=== PATIENT | male | born 1945 | race Caucasian/White ===

== ENCOUNTER 2020-01-24 06:05 | Day surgery (SDC) | payer OTHER ==
[~2020-01-24] VITALS: Ht 162.6 cm; Wt 89.8 kg
--- NOTE | ~2020-01-24 | O ---
Formerly [facility] [place] [address] OPERATIVE REPORT Name: RAYMOND WEST Room #: 150-8 [facility].#: [id number] Admission: 01/24/20 Attend Phys: Vinicio Chiu MD Discharge: Date of : 45 Report #: [id number] THIS REPORT FOR: cc: MILKA CARREON - Family physician unknown Vinicio Chiu MD ~ CC: DAFNE Calderon unknown MD Vinicio Duarte DATE OF SERVICE: 01/24/2020 SURGEON: Vinicio Chiu MD QUALITY ASSURANCE ASSESSOR: None. PREOPERATIVE DIAGNOSIS: Bilateral upper lid dermatochalasia with superior visual field defect. POSTOPERATIVE DIAGNOSIS: Bilateral upper lid dermatochalasia with superior visual field defect. OPERATION PERFORMED: Bilateral upper lid functional blepharoplasty. ANESTHESIA: Local with IV sedation. COMPLICATIONS: None. INDICATIONS FOR SURGERY: This patient has acquired upper lid dermatochalasia with superior visual field loss both eyes because of excessive upper lid tissues to include skin and fat. Visual field testing demonstrates dense superior visual defects. Retesting with the upper lid elevated shows an improvement in visual field loss of over 30% and in excess of 12 degrees. The current procedures are undertaken in order to improve the patient's visual function. Informed consent was obtained to include but not limited to the loss of vision, bleeding, infection, scarring, failure to improve the problem and need for further surgery. DESCRIPTION OF OPERATION: The patient was taken to the operating room, where 2% Xylocaine with epinephrine mixed with equal parts of 0.75% Marcaine with Wydase was administered transcutaneously to each upper lid. The patient was then prepped and draped in the usual sterile fashion and a skin-marking pen was then [address] [address] OPERATIVE REPORT Name: RAYMOND WEST Miguel Room #: 150-8 [facility].#: [id number] Admission: 01/24/20 Attend Phys: Vinicio Chiu MD Discharge: Date of : 45 Report #: [id number] utilized to outline an upper lid crease that was symmetrical on each side. Graefe forceps were then used to quantitate the redundant upper lid skin and it was similarly outlined. The incisions were then made with Fermin scissors and a skin-muscle flap removed from each side with high-temp cautery. Hemostasis was achieved with the monopolar cautery as it was throughout the case. The orbital septum was then identified and the central and medial fat pads were inspected. The redundant soft tissue was then sculpted with the monopolar cautery. The upper lid crease was then reformed with tightening of the pretarsal orbicularis muscle. The upper lid crease was then further reformed with multiple interrupted 6-0 chromic sutures. The skin was then closed with a running 6-0 plain gut suture. The wound was then cleaned and dressed with ophthalmic antibiotic ointment and a nonstick dressing. The patient was transported to the recovery area, where cold compresses were applied, having tolerated the procedure well with no anesthetic or operative complications being noted. By: [id number] Vinicio Chiu MD /nt
[~2020-01-24 06:05] MED LIST: ASPIRIN EC81 M1 PO; CALCIUM500 MG PO; CLARITIN10 M3 PO; CO-ENZYME Q-1010 MG PO; FISH OIL 1,0001 EAC9 PO; FLONASE 0.05%50 MCG NARES; GINKGO BILOBA60 MG PO; IMIPRAMINE HCL25 MG PO; L-LYSINE500 MG PO; METFORMIN HCL500 M3 PO; MIRAPEX0.5 MG PO; OMEPRAZOLE40 MG PO; POTASSIUM20 PO; PRAVASTATIN SOD40 MG PO; PROBIOTIC1 EAC7 PO; ROXICODONE5 MG PO; SYNTHROID75 MCG PO; VITAMIN D31250 MC1 PO; ZYLOPRIM300 MG PO
[2020-01-24 08:44] VITALS: BP 132/54
== END 2020-01-24 09:25 | disposition home or self-care (01) ==
LOC: OR 06:05 → TBA 06:06 → OR 07:40
PROVIDERS: ATTEND Ophthalmology
DX: H02.834 Dermatochalasis of left upper eyelid (principal); H02.831 Dermatochalasis of right upper eyelid; H53.462 Homonymous bilateral field defects, left side; H53.461 Homonymous bilateral field defects, right side; I10 Essential (primary) hypertension; E78.5 Hyperlipidemia, unspecified; E11.9 Type 2 diabetes mellitus without complications; K21.9 Gastro-esophageal reflux disease without esophagitis; G47.30 Sleep apnea, unspecified; M10.9 Gout, unspecified; Z98.890 Other specified postprocedural states; Z79.899 Other long term (current) drug therapy; Z87.891 Personal history of nicotine dependence; Z98.41 Cataract extraction status, right eye; Z98.42 Cataract extraction status, left eye; Z90.49 Acquired absence of other specified parts of digestive tract; Z20.828 Contact with and (suspected) exposure to other viral communicable diseases
CPT/HCPCS: 50010; 50101; 50386; 50398; 51636; 56531; 62110; 62850; 70005